=== PATIENT | female | born 1990 | race Caucasian/White ===

== ENCOUNTER 2021-10-29 07:22 | Emergency (ER) | payer SELFPAY ==
[~2021-10-29 07:22] MED LIST: ALLERGY SHOT SC; DEPO SHOT; ELAVIL 25 MG TA25 MG PO; PERCOCET 7.5-31 EACH PO; PROTONIX 40 MG40 M1 PO; PROTONIX40 MG PO; RANITIDINE HCL300 M1 PO; TOPAMAX 100 MG100 MG PO; VITAMIN D350000 UNIT PO; XYZAL5 MG PO; ZOFRAN ODT 4 MG4 MG SL
[2021-10-29 08:22] LABS: HEMOGLOBIN 13.2 gm/dl (12.3-15.3); RED BLOOD COUNT 4.55 M/UL (4.00-5.10); WHITE BLOOD COUNT 14.1 K/UL (4.5-11.0)
[2021-10-29 08:50] LABS: BUN/CREATININE RATIO 8 (0-10)
[2021-10-29] MEDS ORDERED: OMNICEF 300 MG300 MG PO (12:12)
== END 2021-10-29 16:00 | disposition home or self-care (01) ==
LOC: ER1 07:22
PROVIDERS: Physician Assistant
DX: E87.6 Hypokalemia (principal); N12 Tubulo-interstitial nephritis, not specified as acute or chronic; Z87.442 Personal history of urinary calculi; Z91.040 Latex allergy status
CPT/HCPCS: 71045; 80053; 81001; 82550; 82553; 84484; 85025; 85379; 87086; 93005; 99285; Q9967